=== PATIENT | male | born 1980 | race Caucasian/White ===

== ENCOUNTER 2017-03-05 06:51 | Emergency (ER) | payer SELFPAY ==
[2017-03-05] MEDS ORDERED: NORMAL SALINE 1000 ML 1,000 ML IV ONE (07:31)
[2017-03-05] MEDS ORDERED: ONDANSETRON HCL INJ/PF 4 MG/2 ML SDV IV ONE (07:31)
--- NOTE | 2017-03-05 08:08 | ER Document Report ---
ED General - General Chief Complaint: Vomiting Stated Complaint: VOMITING POSSIBLE ALCOHOL INDUCED Time Seen by Provider: 03/05/17 07:30 Mode of Arrival: Ambulatory Information source: Patient Notes: Patient presents to emergency department with reports of vomiting this morning. Patient reports he had a few drinks of EtOH last night. His girlfriend that is still behind him as rolling her eyes when he talks about a few drinks. She reports having she came home from work he was obviously intoxicated. Patient reports woke up vomiting. Reports he has not felt good for the last couple days. Denies fever and diarrhea. Reports his uvula is swollen. Reports he is also vomiting blood this morning. Reports history of drug abuse to include cocaine. Reports he has had chest pain on and off for the past year with some shortness of breath. No chest pain or shortness of breath at this time. TRAVEL OUTSIDE OF THE [place] IN LAST 30 DAYS: No - HPI Onset: This morning Quality of pain: Achy Pain Level: 3 Associated symptoms: Nausea, Vomiting, Sore throat Exacerbated by: Denies Relieved by: Denies Similar symptoms previously: No Recently seen / treated by doctor: No - Related Data Allergies/Adverse Reactions: No Known Allergies Allergy (Verified 03/05/17 08:01) Past Medical History - General Information source: Patient - Social History Smoking Status: Current Every Day Smoker Cigarette use (# per day): Yes Frequency of alcohol use: Social Drug Abuse: Marijuana, Other - hx of cocaine Occupation: construction Lives with: Friend - girlfriend Family History: Reviewed & Not Pertinent Patient has suicidal ideation: No Patient has homicidal ideation: No - Medical History Medical History: Negative Renal/ Medical History: Denies: Hx Peritoneal Dialysis Surgical Hx: Negative - Immunizations Hx Diphtheria, Pertussis, Tetanus Vaccination: No Review of Systems - Review of Systems Notes: Review HPI for review of systems., All other systems negative Physical Exam - Vital signs Vitals: Temp Pulse Resp BP Pulse Ox 97.6 F 79 16 139/92 H 97 03/05/17 07:04 03/05/17 07:04 03/05/17 07:04 03/05/17 07:04 03/05/17 07:04 - Notes Notes: PHYSICAL EXAMINATION: GENERAL: Looks like he doesn't feel well, hungover HEAD: Atraumatic, normocephalic. EYES: Pupils equal round and reactive to light, extraocular movements intact, sclera anicteric, conjunctiva are normal. ENT: TM wnl, nares patent, oropharynx clear without exudates. Uvula swollen, good airway, speaks in clear voice, Moist mucous membranes. NECK: Normal range of motion, supple without lymphadenopathy LUNGS: CTAB and equal. No wheezes rales or rhonchi. HEART: Regular rate and rhythm without murmurs ABDOMEN: Soft, no tenderness. No guarding, no rebound BACK: Denies pain EXTREMITIES: Normal range of motion, no pitting edema. No cyanosis. NEUROLOGICAL: Cranial nerves grossly intact. Normal sensory/motor exams. PSYCH: Normal mood, normal affect. SKIN: Warm, Dry, normal turgor, no rashes or lesions noted - HEENT Head: Normocephalic Eyes: Normal Conjunctiva: Normal Extraocular movements intact: Yes Eyelashes: Normal Ears: Normal External canal: Normal Tympanic membrane: Normal Nasal: Normal Mucous membranes: Moist Pharynx: Erythema, Uvular edema. No: Exudate, Retropharyngeal abscess, Potential airway comprom. - No peritonsillar abscess good clear voice no trismus opens mouth wide Neck: Normal, Supple. No: Lymphadenopathy Course - Re-evaluation Re-evalutation: 03/05/17 08:12 Instructed on plan of care to include labs, iv fluids.. He verbalized understanding. Labs unremarkable strep negative x-ray negative patient reports he feels much better Pt looks good instructed on plan of care. - Vital Signs Vital signs: Temp Pulse Resp BP Pulse Ox 97.9 F 79 16 128/83 H 98 03/05/17 10:57 03/05/17 10:57 03/05/17 10:57 03/05/17 10:57 03/05/17 10:57 - Laboratory Result Diagrams: 03/05/17 08:17 03/05/17 08:17 - Diagnostic Test Radiology reviewed: Image reviewed, Reports reviewed - neg Discharge - Discharge Clinical Impression: Sore throat, Uvular swelling, Elevated blood pressure reading Condition: Stable Disposition: HOME, SELF-CARE Instructions: Uvula Swelling ([facility]), Sore Throat ([facility]), Family Physicians / Practices, Steroid Medication Injection, Use of [id number] Ibuprofen ([facility]) Additional Instructions: *You have been evaluated for a sore throat, uvula swelling, elevated blood pressure reading *The strep test was negative, a throat culture is pending, you will be contacted should you need antibiotics *Take ibuprofen as indicated for pain *Warm salt water gargles and throat lozenges for comfort *ice chips *Do not let anyone drink/eat after you *Good hand washing *Follow-up with a primary care provider within one week for recheck *Return to ED for worsening condition change, needs, trouble breathing, concerns , unable to swallow Monitor your blood pressure. Your blood pressure was elevated today. This may be because you were anxious, in pain or because you need medication. It is important to follow up with your primary care provider for full evaluation. Forms: Elevated Blood Pressure
[2017-03-05 08:32] LABS: ABSOLUTE BASOPHILS # (AUTO) 0.1 10^3/uL (0.0-0.2); ABSOLUTE EOSINOPHILS # (AUTO) 0.2 10^3/uL (0.0-0.6); ABSOLUTE LYMPHOCYTES (AUTO) 2.8 10^3/uL (0.5-4.7); ABSOLUTE MONOCYTES (AUTO) 0.8 10^3/uL (0.1-1.4); ABSOLUTE NEUT (AUTO) 5.7 10^3/uL (1.7-8.2); BASOPHILS % (AUTO) 0.5 % (0-2); EOSINOPHILS % (AUTO) 2.3 % (0-6); HEMATOCRIT 44.7 % (37.9-51.0); HEMOGLOBIN 15.7 g/dL (13.5-17.0); HGB HCT DIFFERENCE 2.4; LYMPHOCYTES % (AUTO) 29.4 % (13-45); MEAN CORPUSCULAR HEMOGLOBIN 30.8 pg (27.0-33.4); MEAN CORPUSCULAR HGB CONC 35.1 g/dL (32.0-36.0); MEAN CORPUSCULAR VOLUME 88 fl (80-97); MONOCYTES % (AUTO) 8.5 % (3-13); RED CELL DISTRIBUTION WIDTH 13.4 % (11.5-14.0); SEGMENTED NEUTROPHILS % (AUTO) 59.3 % (42-78); WHITE BLOOD COUNT 9.6 10^3/uL (4.0-10.5)
[2017-03-05 08:48] LABS: ALANINE AMINOTRANSFERASE 56 U/L (21-72); ALBUMIN 4.1 g/dL (3.5-5.0); ALCOHOL 40 mg/dL (NONE DETECTED); ALKALINE PHOSPHATASE 53 U/L (38-126); ANION GAP 13 (5-19); ASPARTATE AMINO TRANSFERASE 34 U/L (17-59); BILIRUBIN,DIRECT 0.2 mg/dL (0.0-0.4); BILIRUBIN,TOTAL 0.7 mg/dL (0.2-1.3); BLOOD UREA NITROGEN 17 mg/dL (7-20); CALCIUM 9.3 mg/dL (8.4-10.2); CARBON DIOXIDE 26 mmol/L (22-30); CHLORIDE 104 mmol/L (98-107); CREATININE RESULT 0.96 mg/dL (0.52-1.25); GLUCOSE 85 mg/dL (75-110); POTASSIUM 4.1 mmol/L (3.6-5.0); SODIUM 142.5 mmol/L (137-145); TOTAL PROTEIN 7.2 g/dL (6.3-8.2)
[2017-03-05] MEDS ORDERED: IBUPROFEN 800 MG TABLET PO ONE (09:02)
--- NOTE | 2017-03-05 10:27 | RADIOLOGY REPORT (SQ) ---
EXAM DESCRIPTION: SOFT TISSUE NECK COMPLETED DATE/TIME: 03/05/2017 10:15 am REASON FOR STUDY: swollen uvula COMPARISON: None. NUMBER OF VIEWS: Two views. TECHNIQUE: AP and lateral radiographic image of the soft tissues of the neck. LIMITATIONS: None. FINDINGS: EPIGLOTTIS: Normal. Contour normal. Aryepiglottic folds normal. PREVERTEBRAL SOFT TISSUES: Normal. No soft tissue swelling. SUBGLOTTIC AREA: Normal. No narrowing. RETROPHARYNGEAL SPACE: Normal. No soft tissue masses. BONY STRUCTURES: No significant findings. LUNG APICES: Normal. OTHER: No radiopaque foreign body. No other significant finding. IMPRESSION: NEGATIVE STUDY OF THE SOFT TISSUES OF THE NECK. TECHNICAL DOCUMENTATION: JOB ID: [id number] [email or web address] Rights Reserved
[2017-03-05] MEDS ORDERED: DEXAMETHASONE SOD PHOSPHATE INJ 4 MG/1 ML VIAL IV ONE (10:42)
--- NOTE | 2017-03-05 10:47 | EKG REPORT ---
SEVERITY:- NORMAL ECG - SINUS RHYTHM : Confirmed by: Ritesh Herman 05-Mar-2017 10:46:24
[2017-03-05 10:57] VITALS: BP 128/83
== END 2017-03-05 10:57 | disposition home or self-care (01) ==
LOC: ER 06:51
DX: J02.9 Acute pharyngitis, unspecified (principal); R03.0 Elevated blood-pressure reading, without diagnosis of hypertension; R11.10 Vomiting, unspecified; F17.210 Nicotine dependence, cigarettes, uncomplicated
CPT/HCPCS: 93005; 99284; 96374; 96375; 36415; 87070; 87880; 80307; 85025; 80053; 70360; 93010; J1100; J2405; J7030